=== PATIENT | male | born 1960 | race Caucasian/White ===

== ENCOUNTER 2020-02-13 11:30 | Emergency (ER) | payer OTHER ==
[2020-02-13] MEDS ORDERED: DEXAMETHASONE SOD PHOSPHATE 10 MG/ML 1 ML VIAL IM STA (12:09)
[2020-02-13] MEDS ORDERED: IBUPROFEN 600 MG TAB PO STA (12:09)
--- NOTE | 2020-02-13 12:32 | ED ---
General Adult HPI - General Chief complaint: Fever Stated complaint: Covid Time Seen by Provider: 02/13/20 11:40 Source: patient Mode of arrival: ambulatory Limitations: no limitations - History of Present Illness Initial comments: 59-year-old male patient presents to the emergency department today for evaluation of fever, cough, shortness of breath. Patient states that he started having symptoms on Saturday evening last week. He does report nonproductive cough. States he is having some chest tightness and discomfort especially with coughing. Fevers as high as 102.5. States he has decreased appetite. Denies any vomiting or diarrhea. Denies any rash. States his was recently diagnosed with COVID-19. Patient states he did take about 4 tablets of amoxicillin but has not been helping his symptoms. Denies any history of lung conditions. Did take Tylenol this morning. Denies use of other medications for symptom relief. Patient denies any recent chest pain, abdominal pain, nausea, vomiting, diarrhea, constipation, back pain, numbness, tingling, dizziness, weakness, hematuria, dysuria, urinary urgency, urinary frequency, headache, v isual changes, or any other complaints. - Related Data Previous Rx's Medication Instructions Recorded Albuterol Sulfate [Proair Hfa] 1 - 2 puff INHALATION Q6HR PRN #1 02/13/20 inhaler Dexamethasone 6 mg PO DAILY #9 tablet 02/13/20 Allergies Allergy/AdvReac Type Severity Reaction Status Date / Time No Known Allergies Allergy Verified 02/13/20 11:39 Review of Systems ROS Statement: Those systems with pertinent positive or pertinent negative responses have been documented in the HPI. ROS Other: All systems not noted in ROS Statement are negative. Past Medical History Past Medical History: GERD/Reflux, Hypertension History of Any Multi-Drug Resistant Organisms: None Reported Past Surgical History: No Surgical Hx Reported Past Psychological History: No Psychological Hx Reported Smoking Status: Never smoker Past Alcohol Use History: None Reported Past Drug Use History: None Reported General Exam Limitations: no limitations General appearance: alert, in no apparent distress, other (This is a well- developed, well-nourished adult male patient in no acute distress. Vital signs upon presentation are temperature 102.5F, pulse 99, respirations 20, blood pressure 142/77, pulse ox 97% on room air.) ENT exam: Present: normal exam, normal oropharynx, mucous membranes moist Respiratory exam: Present: normal lung sounds bilaterally. Absent: respiratory distress, wheezes, rales, rhonchi, stridor Cardiovascular Exam: Present: regular rate, normal rhythm, normal heart sounds. Absent: systolic murmur, diastolic murmur, rubs, gallop, clicks GI/Abdominal exam: Present: soft, normal bowel sounds. Absent: distended, tenderness, guarding, rebound, rigid Neurological exam: Present: alert, oriented X3, CN II-XII intact Psychiatric exam: Present: normal affect, normal mood Skin exam: Present: warm, dry, intact, normal color. Absent: rash Course Vital Signs 02/13/20 02/13/20 02/13/20 11:32 12:39 13:00 Temperature 102.5 F H Pulse Rate 99 Respiratory 20 18 18 Rate Blood Pressure 142/77 O2 Sat by Pulse 97 Oximetry Medical Decision Making - Medical Decision Making 59-year-old male patient percents to the emergency department today with complaints of cough, shortness breath, fever. Physical examination did reveal clear equal lung sounds. Patient does not appear to be in any respiratory distress at this time. He is able to speak full sentences. Chest x-ray showed possibly early infiltrates. He did test positive for COVID-19. We did discuss supportive care. To be given prescription for dexamethasone and a Pro Air inhaler. He is instructed to follow-up with his primary care physician for recheck in 1-2 days. Return parameters were discussed at great length and in detail. He verbalizes understanding and agrees with this plan. - Lab Data Lab Results 02/13/20 Range/Units 12:32 Coronavirus (PCR) Detected A (Not Detectd) - Radiology Data Radiology results: report reviewed, image reviewed One view x-ray of the chest is obtained. Report was reviewed in its entirety. Impression by Dr. Schneider shows unable to exclude early peripheral infiltrates. Disposition Clinical Impression: COVID-19 Disposition: HOME SELF-CARE Condition: Good Instructions (If sedation given, give patient instructions): Viral Pneumonia (ED), Fever in Adults (ED), Viral Syndrome (ED) Additional Instructions: Increase fluids. Take Tylenol and Motrin alternating for fever control. Rest. Complete medications as prescribed. Follow-up with your primary care physician for recheck in 1-2 days. Return to the emergency department immediately for any new, worsening, or concerning symptoms. Prescriptions: Dexamethasone 6 mg PO DAILY #9 tablet Albuterol Sulfate [Proair Hfa] 1 - 2 puff INHALATION Q6HR PRN #1 inhaler PRN Reason: Shortness Of Breath Is patient prescribed a controlled substance at d/c from ED?: No Referrals: None,Stated [Primary Care Provider] - 1-2 days Time of Disposition: 13:25
--- NOTE | 2020-02-13 12:44 | XR ---
EXAMINATION TYPE: XR chest 1V portable DATE OF EXAM: 02/13/2020 Comparison: None Clinical History: 59-year-old male Cough/shortness of breath; COVID+ Findings: Heart normal size. No evidence for subtle patchy peripheral groundglass. Some of these densities may relate to overlying soft tissue. Follow-up can be performed. No sizable effusion. Impression: Unable to exclude early peripheral infiltrates. Follow-up can be performed.
[2020-02-13 13:27] VITALS: RESP 18
[2020-02-13 13:43] VITALS: BP 126/81; PULSE 81; TEMP 98.8
== END 2020-02-13 13:45 | disposition home or self-care (01) ==
LOC: EC 11:30
DX: U07.1 COVID-19 (principal)
CPT/HCPCS: 87635; 71045; 96372; 99283; J1100

== ENCOUNTER 2020-02-17 11:05 | Inpatient (IN) | payer OTHER ==
[2020-02-17] MEDS ORDERED: SODIUM CHLORIDE 0.9% 1,000 ML IV STA (12:09)
[2020-02-17] MEDS ORDERED: ALBUTEROL HFA INHALER INHALATION STA (12:09)
--- NOTE | 2020-02-17 12:22 | ED ---
SOB HPI - General Chief Complaint: Shortness of Breath Stated Complaint: covid+/sob/cough/weak/fever Time Seen by Provider: 02/17/20 11:58 Source: patient, RN notes reviewed Mode of arrival: ambulatory Limitations: no limitations - History of Present Illness Initial Comments: This is a 59-year-old male who presents with complaints of shortness of breath because every time he tries inhale he has some exertional dyspnea. He was diagnosed with Covid 19 recently was told her come back at any trouble breathing. She denies any overt fevers chills or sweats he does complain some fatigue and weakness. No current loss of taste or smell. He has had some body aches. No complains modifying factors MD Complaint: shortness of breath, cough - Related Data Home Medications Medication Instructions Recorded Confirmed Albuterol Sulfate [Proair Hfa] 1 - 2 puff INHALATION RT-QID PRN 02/17/2011/28 Omeprazole Magnesium [PriLOSEC OTC] 20 mg PO DAILY 02/17/20 02/17/20 lisinopriL 20 mg PO DAILY 02/17/20 02/17/20 Previous Rx's Medication Instructions Recorded Dexamethasone 6 mg PO DAILY #9 tablet 02/13/20 Allergies Allergy/AdvReac Type Severity Reaction Status Date / Time No Known Allergies Allergy Verified 02/17/20 12:39 Review of Systems ROS Statement: Those systems with pertinent positive or pertinent negative responses have been documented in the HPI. ROS Other: All systems not noted in ROS Statement are negative. Past Medical History Past Medical History: GERD/Reflux, Hypertension History of Any Multi-Drug Resistant Organisms: None Reported Past Surgical History: No Surgical Hx Reported Past Psychological History: No Psychological Hx Reported Smoking Status: Never smoker Past Alcohol Use History: None Reported Past Drug Use History: None Reported General Exam - General Exam Comments Initial Comments: Physical well-developed well-nourished awake alert oriented times 3 male Limitations: no limitations General appearance: alert, in no apparent distress Head exam: Present: atraumatic, normocephalic, normal inspection Eye exam: Present: normal appearance, PERRL, EOMI. Absent: scleral icterus, conjunctival injection, periorbital swelling ENT exam: Present: normal exam, mucous membranes moist Neck exam: Present: normal inspection. Absent: tenderness, meningismus, lymphadenopathy Respiratory exam: Present: decreased breath sounds. Absent: respiratory distress, wheezes, rales, rhonchi, stridor Cardiovascular Exam: Present: regular rate, normal rhythm, normal heart sounds. Absent: systolic murmur, diastolic murmur, rubs, gallop, clicks GI/Abdominal exam: Present: soft, normal bowel sounds. Absent: distended, tenderness, guarding, rebound, rigid Extremities exam: Present: normal inspection, full ROM, normal capillary refill. Absent: tenderness, pedal edema, joint swelling, calf tenderness Back exam: Present: normal inspection Neurological exam: Present: alert, oriented X3, CN II-XII intact Psychiatric exam: Present: normal affect, normal mood Skin exam: Present: warm, dry, intact, normal color. Absent: rash Course Vital Signs 02/17/20 02/17/20 02/17/20 11:27 12:45 14:51 Temperature 99.5 F 99.0 F Pulse Rate 81 71 Respiratory 20 20 18 Rate Blood Pressure 134/82 122/80 O2 Sat by Pulse 93 L 97 Oximetry Medical Decision Making - Lab Data Result diagrams: 02/17/20 12:12 02/17/20 12:10 Lab Results 02/17/20 02/17/20 02/17/20 Range/Units 12:10 12:12 12:12 WBC 8.3 (3.8-10.6) k/uL RBC 4.67 (4.30-5.90) m/uL Hgb 13.5 (13.0-17.5) gm/dL Hct 40.4 (39.0-53.0) % MCV 86.5 (80.0-100.0) fL MCH 28.9 (25.0-35.0) pg MCHC 33.4 (31.0-37.0) g/dL RDW 12.5 (11.5-15.5) % Plt Count 250 (150-450) k/uL MPV 6.4 Neutrophils % 84 % Lymphocytes % 8 % Monocytes % 4 % Eosinophils % 0 % Basophils % 1 % Neutrophils # 7.0 (1.3-7.7) k/uL Lymphocytes # 0.7 L (1.0-4.8) k/uL Monocytes # 0.4 (0-1.0) k/uL Eosinophils # 0.0 (0-0.7) k/uL Basophils # 0.0 (0-0.2) k/uL PT 10.4 (9.0-12.0) sec INR 1.0 (<1.2) APTT 23.0 (22.0-30.0) sec D-Dimer 1.99 H (<0.60) mg/L FEU Sodium 132 L (137-145) mmol/L Potassium 4.8 (3.5-5.1) mmol/L Chloride 99 (98-107) mmol/L Carbon Dioxide 26 (22-30) mmol/L Anion Gap 7 mmol/L BUN 24 H (9-20) mg/dL Creatinine 1.01 (0.66-1.25) mg/dL Est GFR (CKD-EPI)AfAm >90 (>60 ml/min/1.73 sqM) Est GFR (CKD-EPI)NonAf 82 (>60 ml/min/1.73 sqM) Glucose 107 H (74-99) mg/dL Plasma Lactic Acid Jared (0.7-2.0) mmol/L Calcium 8.8 (8.4-10.2) mg/dL Magnesium 1.9 (1.6-2.3) mg/dL Total Bilirubin 0.5 (0.2-1.3) mg/dL AST 90 H (17-59) U/L ALT 132 H (4-49) U/L Alkaline Phosphatase 61 (38-126) U/L Lactate Dehydrogenase 886 H (313-618) U/L Creatine Kinase 115 (55-170) U/L Troponin I (0.000-0.034) ng/mL C-Reactive Protein 60.0 H (<10.0) mg/L NT-Pro-B Natriuret Pep pg/mL Total Protein 6.8 (6.3-8.2) g/dL Albumin 3.6 (3.5-5.0) g/dL Influenza Type A RNA (Not Detectd) Influenza Type B (PCR) (Not Detectd) 02/17/20 02/17/20 02/17/20 Range/Units 12:12 12:12 12:12 WBC (3.8-10.6) k/uL RBC (4.30-5.90) m/uL Hgb (13.0-17.5) gm/dL Hct (39.0-53.0) % MCV (80.0-100.0) fL MCH (25.0-35.0) pg MCHC (31.0-37.0) g/dL RDW (11.5-15.5) % Plt Count (150-450) k/uL MPV Neutrophils % % Lymphocytes % % Monocytes % % Eosinophils % % Basophils % % Neutrophils # (1.3-7.7) k/uL Lymphocytes # (1.0-4.8) k/uL Monocytes # (0-1.0) k/uL Eosinophils # (0-0.7) k/uL Basophils # (0-0.2) k/uL PT (9.0-12.0) sec INR (<1.2) APTT (22.0-30.0) sec D-Dimer (<0.60) mg/L FEU Sodium (137-145) mmol/L Potassium (3.5-5.1) mmol/L Chloride (98-107) mmol/L Carbon Dioxide (22-30) mmol/L Anion Gap mmol/L BUN (9-20) mg/dL Creatinine (0.66-1.25) mg/dL Est GFR (CKD-EPI)AfAm (>60 ml/min/1.73 sqM) Est GFR (CKD-EPI)NonAf (>60 ml/min/1.73 sqM) Glucose (74-99) mg/dL Plasma Lactic Acid Jared 0.9 (0.7-2.0) mmol/L Calcium (8.4-10.2) mg/dL Magnesium (1.6-2.3) mg/dL Total Bilirubin (0.2-1.3) mg/dL AST (17-59) U/L ALT (4-49) U/L Alkaline Phosphatase (38-126) U/L Lactate Dehydrogenase (313-618) U/L Creatine Kinase (55-170) U/L Troponin I <0.012 (0.000-0.034) ng/mL C-Reactive Protein (<10.0) mg/L NT-Pro-B Natriuret Pep 51 pg/mL Total Protein (6.3-8.2) g/dL Albumin (3.5-5.0) g/dL Influenza Type A RNA (Not Detectd) Influenza Type B (PCR) (Not Detectd) 02/17/20 Range/Units 12:47 WBC (3.8-10.6) k/uL RBC (4.30-5.90) m/uL Hgb (13.0-17.5) gm/dL Hct (39.0-53.0) % MCV (80.0-100.0) fL MCH (25.0-35.0) pg MCHC (31.0-37.0) g/dL RDW (11.5-15.5) % Plt Count (150-450) k/uL MPV Neutrophils % % Lymphocytes % % Monocytes % % Eosinophils % % Basophils % % Neutrophils # (1.3-7.7) k/uL Lymphocytes # (1.0-4.8) k/uL Monocytes # (0-1.0) k/uL Eosinophils # (0-0.7) k/uL Basophils # (0-0.2) k/uL PT (9.0-12.0) sec INR (<1.2) APTT (22.0-30.0) sec D-Dimer (<0.60) mg/L FEU Sodium (137-145) mmol/L Potassium (3.5-5.1) mmol/L Chloride (98-107) mmol/L Carbon Dioxide (22-30) mmol/L Anion Gap mmol/L BUN (9-20) mg/dL Creatinine (0.66-1.25) mg/dL Est GFR (CKD-EPI)AfAm (>60 ml/min/1.73 sqM) Est GFR (CKD-EPI)NonAf (>60 ml/min/1.73 sqM) Glucose (74-99) mg/dL Plasma Lactic Acid Jared (0.7-2.0) mmol/L Calcium (8.4-10.2) mg/dL Magnesium (1.6-2.3) mg/dL Total Bilirubin (0.2-1.3) mg/dL AST (17-59) U/L ALT (4-49) U/L Alkaline Phosphatase (38-126) U/L Lactate Dehydrogenase (313-618) U/L Creatine Kinase (55-170) U/L Troponin I (0.000-0.034) ng/mL C-Reactive Protein (<10.0) mg/L NT-Pro-B Natriuret Pep pg/mL Total Protein (6.3-8.2) g/dL Albumin (3.5-5.0) g/dL Influenza Type A RNA Not Detected (Not Detectd) Influenza Type B (PCR) Not Detected (Not Detectd) - EKG Data -: EKG Interpreted by Me EKG shows normal: sinus rhythm EKG Comments: Sinus rhythm a 67. Interval 156 QRS duration 106 QT since QTC 380/[address]-T wave changes - Radiology Data Radiology results: report reviewed (I did review the imaging and report evidence of bilateral PEs and worsening left-sided pneumonia atypical stated.), image reviewed Critical Care Time Critical Care Time: Yes Total Critical Care Time: 36 Critical Care Time: Includes initial presentation with history physical labs x-rays several reevaluation the patient review of old charting discussed with the main physician admission orders documentation of the above Disposition Clinical Impression: Bilateral pulmonary embolism, Pneumonia, COVID-19, Failure of outpatient treatment Disposition: ADMITTED IP TO THIS HOSP Condition: Fair Referrals: Jose Rick MD [Primary Care Provider] - 1-2 days
[2020-02-17 12:28] LABS: Basophils % (A) 1 %; Eosinophils % (A) 0 %; HCT 40.4 % (39.0-53.0); HGB 13.5 gm/dL (13.0-17.5); Lymphocytes # (A) 0.7 k/uL (1.0-4.8); Lymphocytes % (A) 8 %; MCH 28.9 pg (25.0-35.0); MCHC 33.4 g/dL (31.0-37.0); MCV 86.5 fL (80.0-100.0); Mean Platelet Volume 6.4; Monocytes # (A) 0.4 k/uL (0-1.0); Monocytes % (A) 4 %; Neutrophils % (A) 84 %; Platelet Count 250 k/uL (150-450); RBC 4.67 m/uL (4.30-5.90); RDW 12.5 % (11.5-15.5); WBC 8.3 k/uL (3.8-10.6)
--- NOTE | 2020-02-17 12:41 | XR ---
EXAMINATION TYPE: XR chest 1V portable DATE OF EXAM: 02/17/2020 COMPARISON: 02/13/2020 INDICATION: Covid positive, congestion congestion TECHNIQUE: Single frontal view of the chest is obtained. FINDINGS: The heart size is normal. The pulmonary vasculature is normal. There is increasing infiltrate within the left lower lobe. Minimal peripheral infiltrates remain pres ent IMPRESSION: 1. Worsening left lower lobe infiltrate. Findings can be compatible with atypical pneumonia.
[2020-02-17 12:44] LABS: Prothrombin Time 10.4 sec (9.0-12.0)
[2020-02-17 12:46] LABS: ALT 132 U/L (4-49); AST 90 U/L (17-59); African American GFR (CKD) >90 (>60 ml/min/1.73 sqM); Albumin 3.6 g/dL (3.5-5.0); Alkaline Phosphatase 61 U/L (38-126); Anion Gap 7 mmol/L; Blood Urea Nitrogen 24 mg/dL (9-20); Calcium 8.8 mg/dL (8.4-10.2); Carbon Dioxide 26 mmol/L (22-30); Chloride 99 mmol/L (98-107); Creatine Kinase 115 U/L (55-170); Glucose 107 mg/dL (74-99); LDH 886 U/L (313-618); Magnesium 1.9 mg/dL (1.6-2.3); Non-African American GFR(CKD) 82 (>60 ml/min/1.73 sqM); Potassium 4.8 mmol/L (3.5-5.1); Sodium 132 mmol/L (137-145); Total Bilirubin 0.5 mg/dL (0.2-1.3); Total Protein 6.8 g/dL (6.3-8.2)
[2020-02-17 13:09] LABS: D-Dimer 1.99 mg/L FEU (<0.60)
[2020-02-17] MEDS ORDERED: AZITHROMYCIN 500 MG in SODIUM CHLORIDE 0.9% 250 ML IVPB STA ×2 (14:26→15:16)
[2020-02-17] MEDS ORDERED: cefTRIAXone IN SWFI 1,000 MG/10 ML SYRINGE IVP STA (14:26)
[2020-02-17] MEDS ORDERED: ENOXAPARIN 40 MG/0.4 ML SYRINGE SQ STA (14:28)
--- NOTE | 2020-02-17 14:29 | P.HPIM ---
History of Present Illness This is a pleasant 59 years old male with past medical history of GERD, hypertension. Presents because of dyspnea. Patient has been diagnosed with covert about 11-12 days ago he presents now with dyspnea for 4-5 days associated with cough and brown green phlegm but no chest pain Patient also reports some diarrhea for the last few days but with no abdominal pain or vomiting. Patient is not on home oxygen. He denies smoking, alcohol or illicit drugs Vitas looks stable, his saturating 93% on room air. Labs showing unremarkable CBC except for mild lymphopenia and 0.7K. D-dimer is elevated at 1.9, sodium 132, creatinine 1.0. Liver enzymes slightly elevated at 90 AST and 132 ALT. Bilirubin is normal 0.5. Influenza virus not detected. C-reactive protein is slightly elevated at 60. And is negative less than 0.012. Lactate dehydrogenase is elevated at 886 Influenza test is negative Chest x-ray showing worsening left lower lobe infiltrate. CT angiography chest is ordered and the result is pending. Review of Systems CONSTITUTIONAL: No fever, no malaise, no fatigue. HEENT: No recent visual problems or hearing problems. Denied any sore throat. CARDIOVASCULAR: No orthopnea, PND, no palpitations, no syncope. PULMONARY: No chest wall tenderness, no hemoptysis. GASTROINTESTINAL: No diarrhea, no nausea, no vomiting, no abdominal pain. Normoactive bowel sounds. NEUROLOGICAL: No headaches, no weakness, no numbness. HEMATOLOGICAL: Denies any bleeding or petechiae. GENITOURINARY: Denies any burning micturition, frequency, or urgency. MUSCULOSKELETAL/RHEUMATOLOGICAL: Denies any joint pain, swelling, or any muscle pain. ENDOCRINE: Denies any polyuria or polydipsia. Past Medical History Past Medical History: GERD/Reflux, Hypertension History of Any Multi-Drug Resistant Organisms: None Reported Past Surgical History: No Surgical Hx Reported Past Psychological History: No Psychological Hx Reported Smoking Status: Never smoker Past Alcohol Use History: None Reported Past Drug Use History: None Reported Medications and Allergies Home Medications Medication Instructions Recorded Confirmed Type RX: Dexamethasone 6 mg PO DAILY #9 tablet 02/13/20 02/17/20 Rx Albuterol Sulfate [Proair Hfa] 1 - 2 puff INHALATION RT-QID PRN 02/17/20 02/17/20 History Omeprazole Magnesium [PriLOSEC OTC] 20 mg PO DAILY 02/17/20 02/17/20 History RX: lisinopriL 20 mg PO DAILY 02/17/20 02/17/20 History Allergies Allergy/AdvReac Type Severity Reaction Status Date / Time No Known Allergies Allergy Verified 02/17/20 12:39 Physical Exam Vitals: Vital Signs Temp Pulse Resp BP Pulse Ox 02/17/20 12:45 20 02/17/20 11:27 99.5 F 81 20 134/82 93 L Intake and Output 02/16/20 02/17/20 02/17/20 22:59 06:59 14:59 Other: Weight 92.079 kg GENERAL: The patient is alert and oriented x3, not in any acute distress. Well developed, well nourished. HEENT: Pupils are round and equally reacting to light. EOMI. No scleral icterus. No conjunctival pallor. Normocephalic, atraumatic. No pharyngeal erythema. No thyromegaly. CARDIOVASCULAR: S1 and S2 present. No murmurs, rubs, or gallops. -PULMONARY: Chest is clear to auscultation, no wheezing or crackles. Decreased breath sounds in the left lower lung ABDOMEN: Soft, nontender, nondistended, normoactive bowel sounds. No palpable organomegaly. MUSCULOSKELETAL: No joint swelling or deformity. EXTREMITIES: No cyanosis, clubbing, or pedal edema. NEUROLOGICAL: Gross neurological examination did not reveal any focal deficits. SKIN: No rashes. No petechiae Results CBC & Chem 7: 02/17/20 12:12 02/17/20 12:10 Labs: Abnormal Lab Results - Last 24 Hours (Table) 02/17/20 02/17/20 02/17/20 Range/Units 12:10 12:12 12:12 Lymphocytes # 0.7 L (1.0-4.8) k/uL D-Dimer 1.99 H (<0.60) mg/L FEU Sodium 132 L (137-145) mmol/L BUN 24 H (9-20) mg/dL Glucose 107 H (74-99) mg/dL AST 90 H (17-59) U/L ALT 132 H (4-49) U/L Lactate Dehydrogenase 886 H (313-618) U/L C-Reactive Protein 60.0 H (<10.0) mg/L Assessment and Plan Assessment: Left lower pneumonia, mostly related to covid infection Elevated inflammatory markers Mild elevated liver enzymes Plan: This is a pleasant 59 years old male who presents with left lower lobe pneumonia. Possible Covid pneumonia. Follow-up result of Procalcitonin. Give 1 dose of ceftriaxone and Zithromax. Check sputum for culture and urine for Legionella. Pulmonary consult. Oxygen is as needed. Follow-up CTA of the chest Labs and medication were reviewed.. Continue same treatment. Continue with symptomatic treatment. Resume home medication. Monitor lytes and vitals. DVT and GI prophylaxis. Further recommendations depends on the clinical course of the patient DVT prophylaxis: Subcutaneous lovenox GI Prophylaxis: Ppi Prognosis is guarded
--- NOTE | 2020-02-17 14:59 | CT ---
CT CHEST FOR PULMONARY EMBOLISM. EXAMINATION TYPE: CT angio chest DATE OF EXAM: 02/17/2020 INDICATION: Positive d-dimer, COVID + CT DLP: 406 mGycm, Automated exposure control for dose reduction was used. CONTRAST: Patient injected with 100 mL of Isovue 370. COMPARISON: None TECHNIQUE: CT of the chest is performed on a spiral scan at 2 mm thick sections. Study is performed with intravenous contrast timed for evaluation for pulmonary embolism. This will limit additional po rtions of the evaluation. 3-D MIP images reconstructed by the technologist are reviewed on the compu ter in the coronal and sagittal planes. FINDINGS: Small peripheral left lower lobe pulmonary emboli are present. Example image 401 image 103. Right low er lobe pulmonary emboli are evident, example image 401 image 90 No mediastinal or hilar adenopathy enlarged by CT criteria is evident. The ascending aorta diameter at the level of the main pulmonary artery is 3.6 cm. The main pulmonary artery diameter at the bifur cation is 2.2 cm. Bibasilar infiltrates are present peripheral milder infiltrates are also evident. Calcification which may be a granuloma is in the posterior lateral right upper lobe. Limited CT section through the upper abdomen are unremarkable. IMPRESSIONS: 1. Bilateral lower lobe pulmonary emboli. 2. Patchy bilateral lower lobe and posterior lung infiltrate can be compatible with atypical pneumoni a.
[2020-02-17] MEDS: PANTOPRAZOLE 40 MG/10 ML VIAL IVP SCH (15:04)
[2020-02-17] MEDS ORDERED: PNEUMONIA PROTOCOL UTILIZED 1 EACH MISC PO PRN (15:16)
[2020-02-17] MEDS ORDERED: HEPARIN SODIUM,PORCINE 10,000 UNIT/ML 1 ML VIAL IV ONE (15:20)
[2020-02-17] MEDS ORDERED: HEPARIN SODIUM,PORCINE 5,000 UNIT/ML 1 ML VIAL IV PRN (15:20)
[2020-02-17] MEDS ORDERED: HEPARIN SOD,PORK IN 0.45% NACL 25,000 UNIT in 0.45% NACL 1 250ML.BAG IV SCH (15:30)
[2020-02-17] MEDS: ALBUTEROL HFA INHALER INHALATION PRN ×2 (16:31→19:45)
--- NOTE | 2020-02-17 16:36 | P.CNPUL ---
History of Present Illness Consult date: 02/17/20 Reason for consult: dyspnea, cough Chief complaint: Dyspnea, cough History of present illness: 59-year-old white male patient past medical history of hypertension, and GERD was seen in the emergency department on the today 02/13/2020 evaluation of fever, cough, and shortness of breath. His initial onset of symptoms was a week prior to his presentation. 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 Patient states he took 4 tablets of amoxicillin with no improvement of his symptoms, no history of chronic lung disease, she is a nonsmoker. Chest x-ray was obtained showing early peripheral infiltrates, and was diagnosed with viral pneumonia, his Covid 19 PCR was positive. He was discharged home with dexamethasone and albuterol inhaler. Since that time his symptoms progress, she is more short of breath, he is coughing, is having increased exertional dyspnea. He came back for a reevaluation, she denied any fever chills, or sweats, he is complaining of fatigue and weakness. No current loss of taste or smell reports some body aches. Chest x-ray shows worsening left lower lobe infiltrate. His lab work showed a lymphopenia with a lymphocytic, 0.7, d-dimer 1.9, sodium was 132, the rest of electrolytes were unremarkable, BUN was 24 creatinine was 1.01, plasma lactic acid was 0.9, AST was 90, ALT was 132, LDH was 886, troponin was less than 0.012, CRP was elevated at 60, she was again retested for Covid 19 and the test was positive, influenza screen was negative. CTA chest showed bilateral lower lobe and pulmonary emboli. Bibasilar infiltrates are present, we'll infiltrates are also evident. he is currently requiring 2 L of oxygen his pulse ox is 93-97%, he is having low-grade fever, hemodynamically stable, he will be started on therapeutic doses of Lovenox,, sitting gentle IV hydration with point and was seen at a rate of 75 ML per hour, he is on empiric antibiotic coverage with azithromycin and Rocephin, and oral Decadron 6 mg daily Review of Systems All systems: negative Constitutional: Denies chills, Denies fever Eyes: denies blurred vision, denies pain Ears, nose, mouth and throat: Denies headache, Denies sore throat Cardiovascular: Denies chest pain, Denies shortness of breath Respiratory: Reports cough, Reports dyspnea Gastrointestinal: Denies abdominal pain, Denies diarrhea, Denies nausea, Denies vomiting Musculoskeletal: Denies myalgias Integumentary: Denies pruritus, Denies rash Neurological: Denies numbness, Denies weakness Psychiatric: Denies anxiety, Denies depression Endocrine: Denies fatigue, Denies weight change Past Medical History Past Medical History: GERD/Reflux, Hypertension History of Any Multi-Drug Resistant Organisms: None Reported Past Surgical History: No Surgical Hx Reported Past Psychological History: No Psychological Hx Reported Smoking Status: Never smoker Past Alcohol Use History: None Reported Past Drug Use History: None Reported Medications and Allergies Home Medications Medication Instructions Recorded Confirmed Type Dexamethasone 6 mg PO DAILY #9 tablet 02/13/20 02/17/20 Rx Albuterol Sulfate [Proair Hfa] 1 - 2 puff INHALATION RT-QID PRN 02/17/20 02/17/20 History Omeprazole Magnesium [PriLOSEC OTC] 20 mg PO DAILY 02/17/20 02/17/20 History lisinopriL 20 mg PO DAILY 02/17/20 02/17/20 History Allergies Allergy/AdvReac Type Severity Reaction Status Date / Time No Known Allergies Allergy Verified 02/17/20 12:39 Physical Exam Vitals: Vital Signs Temp Pulse Resp BP Pulse Ox 02/17/20 14:51 99.0 F 71 18 122/80 97 02/17/20 12:45 20 02/17/20 11:27 99.5 F 81 20 134/82 93 L Intake and Output 02/17/20 02/17/20 02/17/20 06:59 14:59 22:59 Other: Weight 92.079 kg GENERAL EXAM: Alert, very pleasant 59-year-old white male, 2 L of oxygen the pulse ox 97% comfortable in no apparent distress. HEAD: Normocephalic/atraumatic. EYES: Normal reaction of pupils, equal size. Conjunctiva pink, sclera white. NOSE: Clear with pink turbinates. THROAT: No erythema or exudates. NECK: No masses, no JVD, no thyroid enlargement, no adenopathy. CHEST: No chest wall deformity. Symmetrical expansion. LUNGS: Equal air entry with no crackles, wheeze, rhonchi or dullness. CVS: Regular rate and rhythm, normal S1 and S2, no gallops, no murmurs, no rubs ABDOMEN: Soft, nontender. No hepatosplenomegaly, normal bowel sounds, no guarding or rigidity. EXTREMITIES: No clubbing, no edema, no cyanosis, 2+ pulses and upper and lower extremities. MUSCULOSKELETAL: Muscle strength and tone normal. SPINE: No scoliosis or deformity SKIN: No rashes CENTRAL NERVOUS SYSTEM: Alert and oriented -3. No focal deficits, tone is normal in all 4 extremities. PSYCHIATRIC: Alert and oriented -3. Appropriate affect. Intact judgment and insight. Results - Laboratory Findings CBC and BMP: 02/17/20 12:12 02/17/20 12:10 PT/INR, D-dimer PT 10.4 sec (9.0-12.0) 02/17/20 12:12 INR 1.0 (<1.2) 02/17/20 12:12 D-Dimer 1.99 mg/L FEU (<0.60) H 02/17/20 12:12 Abnormal lab findings: Abnormal Labs 02/17/20 02/17/20 02/17/20 12:10 12:12 12:12 Lymphocytes # 0.7 L D-Dimer 1.99 H Sodium 132 L BUN 24 H Glucose 107 H AST 90 H ALT 132 H Lactate Dehydrogenase 886 H C-Reactive Protein 60.0 H - Diagnostic Findings Chest x-ray: report reviewed, image reviewed CT scan - chest: report reviewed, image reviewed Assessment and Plan Plan: Assessment: #1. Acute Hypoxic respiratory failure related to acute COVID 19 pneumonitis, and his first onset of symptoms was 2 weeks ago, out of the window for return visit here, was seen in the emergency department on 02/13/2020 and diagnosed with COVID 19, tested again positive today on 02/27/2020 #2. Acute bilateral lower lobe pulmonary emboli, he will be started on therapeutic doses of Lovenox #3. Worsening symptoms of shortness of breath, cough, related to the above #4. Rule out lower extremity DVTs #5. Elevated d-dimer related to acute lower lobe pulmonary emboli, and COVID 19 infection #6. Nonsmoker #7. Hypertension #8. GERD/reflux Plan: Continue current medical treatment, Lovenox dose was increased to therapeutic doses, we will obtain a lower extremity Dopplers to rule out DVTs, continue dexamethasone, patient is out of the window for Remdesivir, will continue vitamins and supplements, patient will be kept and monitored. I performed a history & physical examination of the patient and discussed their management with my nurse practitioner, Rossy Gao. I reviewed the nurse practitioner's note and agree with the documented findings and plan of care. Lung sounds are positive for diminished breath sounds. The findings and the impression was discussed with the patient. I attest to the documentation by the nurse practitioner. Time with Patient: Greater than 30
[2020-02-17] MEDS: SODIUM CHLORIDE 0.9% 1,000 ML IV SCH (16:58)
--- NOTE | 2020-02-17 17:41 | US ---
EXAMINATION TYPE: US venous doppler duplex LE BI DATE OF EXAM: 02/17/2020 4:33 PM COMPARISON: NONE CLINICAL HISTORY: pe. SIDE PERFORMED: Bilateral TECHNIQUE: The lower extremity deep venous system is examined utilizing real time linear array sonog katie with graded compression, doppler sonography and color-flow sonography. VESSELS IMAGED: Common Femoral Vein Deep Femoral Vein Greater Saphenous Vein * Femoral Vein Popliteal Vein Small Saphenous Vein * Proximal Calf Veins (* superficial vessels) Right Leg: Negative for DVT Left Leg: Negative for DVT IMPRESSION: No evidence of deep vein thrombosis in both legs.
[2020-02-17] MEDS: ENOXAPARIN 100 MG/ML SYRINGE SQ SCH (20:18)
[2020-02-18 00:36] LABS: Ferritin 640.8 ng/mL (22.0-322.0)
[2020-02-18] MEDS: SODIUM CHLORIDE 0.9% 1,000 ML IV SCH ×3 (02:05→22:00)
[2020-02-18 07:19] LABS: Basophils # (A) 0.2 k/uL (0-0.2); Basophils % (A) 2 %; Eosinophils % (A) 0 %; HCT 36.7 % (39.0-53.0); HGB 12.6 gm/dL (13.0-17.5); Lymphocytes # (A) 0.9 k/uL (1.0-4.8); Lymphocytes % (A) 11 %; MCH 30.1 pg (25.0-35.0); MCHC 34.4 g/dL (31.0-37.0); MCV 87.4 fL (80.0-100.0); Mean Platelet Volume 6.8; Monocytes # (A) 0.6 k/uL (0-1.0); Monocytes % (A) 7 %; Neutrophils # (A) 6.5 k/uL (1.3-7.7); Neutrophils % (A) 79 %; Platelet Count 250 k/uL (150-450); RDW 12.1 % (11.5-15.5); WBC 8.2 k/uL (3.8-10.6)
[2020-02-18] MEDS: ENOXAPARIN 100 MG/ML SYRINGE SQ SCH ×2 (08:49→20:20)
[2020-02-18] MEDS: dexAMETHasone 2 MG TAB PO SCH (08:50)
[2020-02-18] MEDS: lisinopriL 20 MG TAB PO SCH (08:50)
[2020-02-18] MEDS: AZITHROMYCIN 500 MG TAB PO SCH (08:51)
[2020-02-18] MEDS: ASCORBIC ACID 500 MG TAB PO SCH (08:51)
[2020-02-18] MEDS: CHOLECALCIFEROL 400 UNIT TAB PO SCH (08:51)
[2020-02-18] MEDS: PANTOPRAZOLE 40 MG/10 ML VIAL IVP SCH (08:51)
[2020-02-18] MEDS: ZINC SULFATE 220 MG CAP PO SCH (08:51)
[2020-02-18] MEDS ORDERED: NON FORMULARY DRUG (Omeprazole Magnesium [Prilosec Otc] 20 MG Tablet.Dr) PO SCH (09:00)
[2020-02-18] MEDS: ALBUTEROL HFA INHALER INHALATION PRN ×4 (09:05→21:17)
--- NOTE | 2020-02-18 10:33 | XR ---
EXAMINATION TYPE: XR chest 1V DATE OF EXAM: 02/18/2020 COMPARISON: 02/17/2020 HISTORY: Cough possible pneumonia TECHNIQUE: Single frontal view of the chest is obtained. FINDINGS: Patchy bilateral infiltrates are stable. Underlying COPD suspected. No pneumothorax. Heart size normal. IMPRESSION: Patchy bilateral infiltrate. Stable
--- NOTE | 2020-02-18 16:12 | P.PN ---
Subjective Progress Note Date: 02/18/20 On today's evaluation the patient is on 2 L of oxygen by nasal cannula. A repeat chest x-ray was done and showed persistent pulmonary infiltration of the lung bases consistent with coronavirus/Covid 19 related associated pneumonia. The patient is on Lovenox. The patient is also started warfarin as long-term anticoagulant. The patient on Decadron. No new complaints otherwise for now. Still having some limited shortness of breath and cough and. No fever. No chills. No altered mentation. No nausea vomiting or diarrhea. Doppler of the lower extremity came back negative for DVTs. As mentioned earlier, his Covid 19 testing was positive. Objective - Vital Signs Vital signs: Vital Signs Temp 99.0 F 02/18/20 11:00 Pulse 78 02/18/20 13:23 Resp 17 02/18/20 11:00 BP 136/89 02/18/20 11:00 Pulse Ox 87 L 02/18/20 13:23 Intake & Output 02/17/20 02/18/20 02/18/20 18:59 06:59 18:59 Intake Total 1300 Balance 1300 Weight 92.079 kg 92.079 kg Intake: Intake, IV Titration 1000 Amount Sodium Chloride 0.9% 1, 1000 000 ml @ 100 mls/hr IV . Q10H [facility] Rx#:[id number] Oral 300 Other: Voiding Method Toilet Toilet # Voids 3 - Exam GENERAL EXAM: Alert, very pleasant 59-year-old white male, 2 L of oxygen the pulse ox 97% comfortable in no apparent distress. HEAD: Normocephalic/atraumatic. EYES: Normal reaction of pupils, equal size. Conjunctiva pink, sclera white. NOSE: Clear with pink turbinates. THROAT: No erythema or exudates. NECK: No masses, no JVD, no thyroid enlargement, no adenopathy. CHEST: No chest wall deformity. Symmetrical expansion. LUNGS: Equal air entry with no crackles, wheeze, rhonchi or dullness. CVS: Regular rate and rhythm, normal S1 and S2, no gallops, no murmurs, no rubs ABDOMEN: Soft, nontender. No hepatosplenomegaly, normal bowel sounds, no guarding or rigidity. EXTREMITIES: No clubbing, no edema, no cyanosis, 2+ pulses and upper and lower extremities. MUSCULOSKELETAL: Muscle strength and tone normal. SPINE: No scoliosis or deformity SKIN: No rashes CENTRAL NERVOUS SYSTEM: Alert and oriented -3. No focal deficits, tone is normal in all 4 extremities. PSYCHIATRIC: Alert and oriented -3. Appropriate affect. Intact judgment and insight. - Labs CBC & Chem 7: 02/18/20 06:43 02/17/20 12:10 Labs: Abnormal Lab Results - Last 24 Hours (Table) 02/17/20 02/17/20 02/18/20 Range/Units 12:10 15:05 06:43 RBC 4.20 L (4.30-5.90) m/uL Hgb 12.6 L (13.0-17.5) gm/dL Hct 36.7 L (39.0-53.0) % Lymphocytes # 0.9 L (1.0-4.8) k/uL Ferritin 640.8 H (22.0-322.0) ng/mL Coronavirus (PCR) Detected A (Not Detectd) Microbiology - Last 24 Hours (Table) 02/17/20 12:16 Blood Culture - Preliminary Blood No Growth after 24 hours Assessment and Plan Plan: #1. Acute Hypoxic respiratory failure related to acute COVID 19 pneumonitis, and his first onset of symptoms was 2 weeks ago, out of the window for return visit here, was seen in the emergency department on 02/13/2020 and diagnosed with COVID 19, tested again positive today on 02/27/2020 #2. Acute bilateral lower lobe pulmonary emboli, he will be started on therapeutic doses of Lovenox #3. Worsening symptoms of shortness of breath, cough, related to the above #4. Rule out lower extremity DVTs #5. Elevated d-dimer related to acute lower lobe pulmonary emboli, and COVID 19 infection #6. Nonsmoker #7. Hypertension #8. GERD/reflux Plan Continue Decadron Keep oxygen at 2 L Monitor oxygenation Continue Lovenox and initiate warfarin with daily PT/INR monitoring Condition is stable for now. We'll continue to follow.
[2020-02-18] MEDS ORDERED: WARFARIN 5 MG TAB PO ONE (18:00)
--- NOTE | 2020-02-18 23:26 | P.PN ---
Subjective This is a pleasant 59 years old male with past medical history of GERD, hypertension. Presents because of dyspnea. Patient has been diagnosed with covert about 11-12 days ago he presents now with dyspnea for 4-5 days associated with cough and brown green phlegm but no chest pain Patient also reports some diarrhea for the last few days but with no abdominal pain or vomiting. Patient is not on home oxygen. He denies smoking, alcohol or illicit drugs Vitas looks stable, his saturating 93% on room air. Labs showing unremarkable CBC except for mild lymphopenia and 0.7K. D-dimer is elevated at 1.9, sodium 132, creatinine 1.0. Liver enzymes slightly elevated at 90 AST and 132 ALT. Bilirubin is normal 0.5. Influenza virus not detected. C-reactive protein is slightly elevated at 60. And is negative less than 0.012. Lactate dehydrogenase is elevated at 886 Influenza test is negative Chest x-ray showing worsening left lower lobe infiltrate. CT angiography chest is ordered and the result is pending. 02/18/2020 Patient is awake with some respiratory distress and diarrhea. No abdominal pain. No signs of bleeding. He is saturating 96% on 2 L oxygen via nasal cannula. Chest x-ray showing patchy bilateral basal infiltrate Fluids and urine OR negative. CBC is stable Patient remains on Zithromax, ceftriaxone, dexamethasone, Lovenox and normal saline at 75 L per hour as well as zinc and vitamin C. Coumadine has been admitted because he has no insurance coverage. Follow-up INR CONSTITUTIONAL: No fever, no malaise, no fatigue. HEENT: No recent visual problems or hearing problems. Denied any sore throat. CARDIOVASCULAR: No orthopnea, PND, no palpitations, no syncope. PULMONARY: No shortness of breath, no cough, no hemoptysis. GASTROINTESTINAL: No diarrhea, no nausea, no vomiting, no abdominal pain. Normoactive bowel sounds. NEUROLOGICAL: No headaches, no weakness, no numbness. HEMATOLOGICAL: Denies any bleeding or petechiae. Active Medications Generic Name Dose Route Start Last Admin Trade Name Freq PRN Reason Stop Dose Admin Albuterol Sulfate 2 puff 02/17/20 15:18 02/18/20 21:17 Albuterol Hfa Inhaler INHALATION 2 puff RT-QID PRN Administration Shortness Of Breath Ascorbic Acid 1,000 mg 02/18/20 09:00 02/18/20 08:51 Ascorbic Acid 500 Mg Tab PO 1,000 mg DAILY [facility] Administration Azithromycin 500 mg 02/18/20 09:00 02/18/20 08:51 Azithromycin 500 Mg Tab PO 02/22/20 09:01 500 mg DAILY [facility] Administration Cholecalciferol 400 unit 02/18/20 09:00 02/18/20 08:51 Cholecalciferol 400 Unit Tab PO 400 unit DAILY [facility] Administration Dexamethasone 6 mg 02/18/20 09:00 02/18/20 08:50 Dexamethasone 2 Mg Tab PO 6 mg DAILY [facility] Administration Enoxaparin Sodium 90 mg 02/17/20 21:00 02/18/20 20:20 Enoxaparin 100 Mg/Ml Syringe SQ 90 mg Q12HR [facility] Administration Sodium Chloride 1,000 mls @ 75 mls/hr 02/17/20 15:30 02/18/20 22:00 Saline 0.9% IV 100 mls/hr .[id number] [facility] Administration Ceftriaxone Sodium 2 gm/ 50 mls @ 100 mls/hr 02/18/20 16:00 02/18/20 17:26 Sodium Chloride IVPB 100 mls/hr Q24HR@1600 [facility] Administration Lisinopril 20 mg 02/18/20 09:00 02/18/20 08:50 Lisinopril 20 Mg Tab PO 20 mg DAILY [facility] Administration Miscellaneous Information 1 each 02/17/20 15:16 Pneumonia Protocol Utilized 1 Each Misc PO ONCE PRN Per Protocol Miscellaneous Information 0 each 02/18/20 13:13 Warfarin Per Pharmacy MISCELLANE DIRECTED PRN PHARMACY DOSING PROTOCOL Pantoprazole Sodium 40 mg 02/19/20 09:00 Pantoprazole 40 Mg Tablet PO DAILY [facility] Zinc Sulfate 220 mg 02/18/20 09:00 02/18/20 08:51 Zinc Sulfate 220 Mg Cap PO 220 mg DAILY [facility] Administration Objective - Vital Signs Vital signs: Vital Signs Temp 98.4 F 02/18/20 16:59 Pulse 69 02/18/20 16:59 Resp 16 02/18/20 16:59 BP 138/79 02/18/20 16:59 Pulse Ox 96 02/18/20 16:59 Intake & Output 02/18/20 02/18/20 02/19/20 06:59 18:59 06:59 Intake Total 1300 Balance 1300 Weight 92.079 kg Intake: Intake, IV Titration 1000 Amount Sodium Chloride 0.9% 1, 1000 000 ml @ 100 mls/hr IV . Q10H [facility] Rx#:[id number] Oral 300 Other: Voiding Method Toilet Toilet # Voids 3 3 - Exam GENERAL: The patient is alert and oriented x3, not in any acute distress. Well developed, well nourished. HEENT: Pupils are round and equally reacting to light. EOMI. No scleral icterus. No conjunctival pallor. Normocephalic, atraumatic. No pharyngeal erythema. No thyromegaly. CARDIOVASCULAR: S1 and S2 present. No murmurs, rubs, or gallops. PULMONARY: Chest is clear to auscultation, no wheezing or crackles. ABDOMEN: Soft, nontender, nondistended, normoactive bowel sounds. No palpable organomegaly. MUSCULOSKELETAL: No joint swelling or deformity. EXTREMITIES: No cyanosis, clubbing, or pedal edema. NEUROLOGICAL: Gross neurological examination did not reveal any focal deficits. SKIN: No rashes. no petechiae. - Labs CBC & Chem 7: 02/18/20 06:43 02/17/20 12:10 Labs: Abnormal Lab Results - Last 24 Hours (Table) 02/17/20 02/18/20 Range/Units 12:10 06:43 RBC 4.20 L (4.30-5.90) m/uL Hgb 12.6 L (13.0-17.5) gm/dL Hct 36.7 L (39.0-53.0) % Lymphocytes # 0.9 L (1.0-4.8) k/uL Ferritin 640.8 H (22.0-322.0) ng/mL Microbiology - Last 24 Hours (Table) 02/18/20 09:05 Sputum Culture - Preliminary Sputum 02/17/20 12:16 Blood Culture - Preliminary Blood No Growth after 24 hours Assessment and Plan Assessment: Left lower pneumonia, mostly related to covid infection Elevated inflammatory markers Mild elevated liver enzymes Plan: This is a pleasant 59 years old male who presents with left lower lobe pneumonia. Possible Covid pneumonia. Follow-up result of Procalcitonin. Give 1 dose of ceftriaxone and Zithromax. Check sputum for culture and urine for Legionella. Pulmonary consult. Oxygen is as needed. Follow-up CTA of the chest Labs and medication were reviewed.. Continue same treatment. Continue with symptomatic treatment. Resume home medication. Monitor lytes and vitals. DVT and GI prophylaxis. Further recommendations depends on the clinical course of the patient DVT prophylaxis: Subcutaneous lovenox GI Prophylaxis: Ppi Prognosis is guarded
[2020-02-19 07:00] LABS: Basophils # (A) 0.1 k/uL (0-0.2); Basophils % (A) 1 %; Eosinophils % (A) 0 %; HCT 40.5 % (39.0-53.0); HGB 13.6 gm/dL (13.0-17.5); Lymphocytes % (A) 11 %; MCH 29.6 pg (25.0-35.0); MCHC 33.6 g/dL (31.0-37.0); Mean Platelet Volume 6.7; Monocytes # (A) 0.6 k/uL (0-1.0); Monocytes % (A) 6 %; Neutrophils # (A) 7.2 k/uL (1.3-7.7); Neutrophils % (A) 80 %; Platelet Count 318 k/uL (150-450); RDW 12.1 % (11.5-15.5)
[2020-02-19] MEDS: ALBUTEROL HFA INHALER INHALATION PRN ×3 (08:13→15:59)
[2020-02-19] MEDS ORDERED: PANTOPRAZOLE 40 MG TABLET PO SCH (09:00)
[2020-02-19] MEDS: ENOXAPARIN 100 MG/ML SYRINGE SQ SCH (09:22)
[2020-02-19] MEDS: ASCORBIC ACID 500 MG TAB PO SCH (09:22)
[2020-02-19] MEDS: AZITHROMYCIN 500 MG TAB PO SCH (09:22)
[2020-02-19] MEDS: lisinopriL 20 MG TAB PO SCH (09:22)
[2020-02-19] MEDS: CHOLECALCIFEROL 400 UNIT TAB PO SCH (09:22)
[2020-02-19] MEDS: dexAMETHasone 2 MG TAB PO SCH (09:23)
[2020-02-19] MEDS: ZINC SULFATE 220 MG CAP PO SCH (09:23)
[2020-02-19 09:27] LABS: INR 1.17 (0.90-1.11); Prothrombin Time 12.5 sec (9.9-11.9)
[2020-02-19] MEDS: SODIUM CHLORIDE 0.9% 1,000 ML IV SCH (13:03)
--- NOTE | 2020-02-19 16:46 | P.PN ---
Subjective Progress Note Date: 02/19/20 Principal diagnosis: Acute CoVID 19 pneumonitis The patient is seen today 02/19/2020 in follow-up on the regular medical floor. He is currently awake and alert in no acute distress. No worsening shortness of breath. No cough or congestion. Maintaining O2 saturation in the 90s on room air and with ambulation white count 9.0. Hemoglobin 13.6. INR 1.17. A culture reveals no growth. Sputum culture reveals no growth. He is continued on dexamethasone, Lovenox him a vitamin supplements. And emetics in the form of ceftriaxone and azithromycin. To be anticoagulated with warfarin. Objective - Vital Signs Vital signs: Vital Signs Temp 97.7 F 02/19/20 10:22 Pulse 69 02/19/20 13:31 Resp 20 02/19/20 10:22 BP 126/86 02/19/20 10:22 Pulse Ox 94 L 02/19/20 13:31 Intake & Output 02/18/20 02/19/20 02/19/20 18:59 06:59 18:59 Intake Total 900 Balance 900 Intake: Intake, IV Titration 900 Amount Sodium Chloride 0.9% 1, 900 000 ml @ 75 mls/hr IV . [id number] [facility] Rx#:[id number] Other: Voiding Method Toilet Toilet Toilet # Voids 3 2 - Exam GENERAL EXAM: Alert, active, wasn't 59-year-old gentleman, on room air, comfortable in no apparent distress. HEAD: Normocephalic. EYES: Normal reaction of pupils, equal size. NOSE: Clear with pink turbinates. THROAT: No erythema or exudates. NECK: No masses, no JVD. CHEST: No chest wall deformity. LUNGS: Equal air entry with few scattered rhonchi bilaterally. CVS: S1 and S2 normal with no audible murmur, regular rhythm. ABDOMEN: No hepatosplenomegaly, normal bowel sounds, no guarding or rigidity. SPINE: No scoliosis or deformity SKIN: No rashes CENTRAL NERVOUS SYSTEM: No focal deficits, tone is normal in all 4 extremities. EXTREMITIES: There is no peripheral edema. No clubbing, no cyanosis. Peripheral pulses are intact. - Labs CBC & Chem 7: 02/19/20 06:21 02/17/20 12:10 Labs: Abnormal Lab Results - Last 24 Hours (Table) 02/19/20 Range/Units 06:21 PT 12.5 H (9.9-11.9) sec INR 1.17 H (0.90-1.11) Microbiology - Last 24 Hours (Table) 02/17/20 12:16 Blood Culture - Preliminary Blood No Growth after 48 hours 02/18/20 09:05 Gram Stain - Preliminary Sputum Sputum Culture - Preliminary Assessment and Plan Assessment: 1. Acute Hypoxic respiratory failure related to acute COVID 19 pneumonitis, and his first onset of symptoms was 2 weeks ago, out of the window for return visit here, was seen in the emergency department on 02/13/2020 and diagnosed with COVID 19, tested again positive today on 02/27/2020 2. Acute bilateral lower lobe pulmonary emboli, he will be started on therapeutic doses of Lovenox 3. Worsening symptoms of shortness of breath, cough, related to the above 4. Rule out lower extremity DVTs 5. Elevated d-dimer related to acute lower lobe pulmonary emboli, and COVID 19 infection 6. Nonsmoker 7. Hypertension 8. GERD/reflux Plan: The patient was seen and evaluated by Dr. Sheldon Instead of warfarin, he'll be receiving 30 days of free Eliquis Continue a complete 10 day course of dexamethasone Discharge home, follow closely with his PCP I, the cosigning physician, performed a history & physical examination of the patient. Lungs sounds with few scattered rhonchi. Maintaining good O2 saturations in the 90s on room air. I discussed the assessment and plan of care with my nurse practitioner, Tea Verdugo. I attest to the above note as dictated by her.
[2020-02-19 16:54] VITALS: BP 134/86; PULSE 78; RESP 16; TEMP 98.1
[2020-02-19] MEDS ORDERED: WARFARIN 5 MG TAB PO ONE (18:00)
[2020-02-19] MEDS ORDERED: APIXABAN 5 MG TAB PO SCH (18:00)
--- NOTE | 2020-02-20 01:15 | P.DS ---
Providers Date of admission: 02/17/20 15:16 Attending physician: Arian Jordan MD Consults: 02/17/20 14:30 Consult Physician Routine Consulting Provider: Bhupendra Sheldon Consult Reason/Comments: pna, possible covid Do you want consulting provider notified?: Yes Primary care physician: [facility] Course: Diagnoses: Left lower pneumonia, mostly related to covid infection Elevated inflammatory markers Bilateral pulmonary embolism Mild elevated liver enzymes Hospital course: This is a pleasant 59 years old male with past medical history of GERD, hypertension. Presents because of dyspnea. Patient has been diagnosed with covert about 11-12 days ago he presents now with dyspnea for 4-5 days associated with cough and brown green phlegm but no chest pain Patient also reports some diarrhea for the last few days but with no abdominal pain or vomiting. CT angiography chest: Bilateral lower lobe pulmonary emboli. Ultrasound of both legs is negative for DVT Patient was started on Lovenox with Coumadin and bridging because he has no insurance, patient refused to take Coumadin because stating that it upsets his stomach, patient instead asked to be placed on Eliquis stating that for sure he will get his insurance back on March and otherwise he can pay for it. he was provided with a free coupon for 1 month supply of Eliquis with instruction to take 10 mg twice daily for 7 days to be followed by 5 mg daily and he agrees. Importance of compliance is explained for the patient, risks including but not limited to recurrent PE and/or are explained and he verbalized understan ding and acceptance. 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 Today patient states that he is back to normal he denies any respiratory symptoms, no coughing, no chest pain and he denies dyspnea. Home oxygen evaluation was done. Patient does not qualify as he saturating 90s% on room air with exertion. Also denies any other GI symptoms stating that his diarrhea has improved and his bowel movement is performed. He is afebrile and he was eager to be discharged home today. Patient was cleared for discharge by supervisor mold construction Dr. Sheldon Problems and management plan were discussed with the patient and he verbalized understanding and acceptance Patient was found stable and can be discharged home however he needs follow-up as an outpatient. Patient was instructed to follow up with PCP Dr. Rafat Quezada within one week and patient agrees. Also patient was instructed to follow up with Dr. Sheldon in 3-4 weeks and he agrees to call and make his own appointment Gen: patient is a AAOx3, no distress CVS: S1-S2, RRR, no murmur Lungs: B/L CTA, no wheezing Abdomen: soft, no distention, no tenderness, positive bowel sounds Extremity: no leg edema or induration Time spent more than 35 minutes Patient Condition at Discharge: Fair Plan - Discharge Summary Discharge Rx Participant: No New Discharge Prescriptions: New Apixaban [Eliquis] 5 mg PO DIRECTED #60 tab Cefuroxime Axetil [Ceftin] 500 mg PO BID 7 Days #14 tab Zinc Sulfate [Orazinc] 220 mg PO DAILY #30 cap Ascorbic Acid [Vitamin C] 1,000 mg PO DAILY #60 tab Cholecalciferol [Vitamin D3] 400 unit PO DAILY #30 tab Azithromycin [Zithromax] 500 mg PO DAILY #5 tab Continue lisinopriL 20 mg PO DAILY Albuterol Sulfate [Proair Hfa] 1 - 2 puff INHALATION RT-QID PRN PRN Reason: Shortness Of Breath Omeprazole Magnesium [PriLOSEC OTC] 20 mg PO DAILY Dexamethasone 6 mg PO DAILY 8 Days #8 tablet Discharge Medication List Albuterol Sulfate [Proair Hfa] 1 - 2 puff INHALATION RT-QID PRN 02/17/20 [History] Omeprazole Magnesium [PriLOSEC OTC] 20 mg PO DAILY 02/17/20 [History] lisinopriL 20 mg PO DAILY 02/17/20 [History] Apixaban [Eliquis] 5 mg PO DIRECTED #60 tab 02/19/20 [Rx] Ascorbic Acid [Vitamin C] 1,000 mg PO DAILY #60 tab 02/19/20 [Rx] Azithromycin [Zithromax] 500 mg PO DAILY #5 tab 02/19/20 [Rx] Cefuroxime Axetil [Ceftin] 500 mg PO BID 7 Days #14 tab 02/19/20 [Rx] Cholecalciferol [Vitamin D3] 400 unit PO DAILY #30 tab 02/19/20 [Rx] Dexamethasone 6 mg PO DAILY 8 Days #8 tablet 02/19/20 [Rx] Zinc Sulfate [Orazinc] 220 mg PO DAILY #30 cap 02/19/20 [Rx] Follow up Appointment(s)/Referral(s): Jose Rcik MD [Primary Care Provider] - 1-2 days (office is closed.patient will have to call and schedule own appt.) Damien Barrios NPC [REFERRING] - 1 Week Bhupendra Sheldon MD [STAFF PHYSICIAN] - 3 Weeks (pulmonlogist ) Patient Instructions/Handouts: Cefuroxime (By mouth), Azithromycin (By mouth), Ascorbic Acid (By mouth), Zinc Acetate (By mouth), Dexamethasone (By mouth), Vitamin D (By mouth), Apixaban (By mouth), Pulmonary Embolism (DC), Pneumonia (DC) Activity/Diet/Wound Care/Special Instructions: diet as tolerated activity limited until seen by . Please see Dr. Sheldon in his office Discharge Disposition: HOME SELF-CARE
== END 2020-02-19 19:54 | disposition home or self-care (01) | DRG 177 ==
LOC: EC 11:05 → 6NMEDSUR 15:16
PROVIDERS: ADMIT Internal Medicine; ATTEND Internal Medicine
DX: U07.1 COVID-19 (principal); J12.89 Other viral pneumonia; J96.01 Acute respiratory failure with hypoxia; I26.99 Other pulmonary embolism without acute cor pulmonale; K21.9 Gastro-esophageal reflux disease without esophagitis; I10 Essential (primary) hypertension; D72.810 Lymphocytopenia; Z79.899 Other long term (current) drug therapy; Z79.01 Long term (current) use of anticoagulants
CPT/HCPCS: 36415; 71045; 71275; 80053; 82550; 82728; 83605; 83615; 83735; 83880; 84145; 84484; 85025; 85379; 85610; 85730; 86140; 87040; 87070; 87205; 87449; 87502; 87635; 93005; 93970; 94640; 94760; 96361; 96365; 96372; 96375; 99291